=== PATIENT | female | born 1955 | race Caucasian/White ===

== ENCOUNTER 2016-09-28 18:18 | Inpatient (IN) | payer OTHER ==
[~2016-09-28] VITALS: Ht 154.9 cm; Wt 55.0 kg
[~2016-09-28 18:18] MED LIST: GLUCTAB PO; VALA500T OR
[2016-09-28 18:23] VITALS: BP 126/66; PULSE 81; RESP 16; TEMP 98.3; O2SAT 98
[2016-09-28] MEDS ORDERED: METR250 PO (18:39)
[2016-09-28] MEDS ORDERED: VALCYCLOVIR (18:39)
[2016-09-28] MEDS ORDERED: MELO1POW14 (18:39)
[2016-09-28] MEDS ORDERED: METF500T PO (18:39)
[2016-09-28 19:32] VITALS: BP 113/69; PULSE 77; RESP 16; O2SAT 98
[2016-09-28 20:06] LABS: AUTOMATED NEUTROPHIL # 13.4 TH/MM3 (1.8-7.7); BASOPHIL # 0.2 TH/MM3 (0-0.2); BASOPHIL % 1.2 % (0.0-2.0); EOSINOPHIL # 0.1 TH/MM3 (0-0.4); EOSINOPHIL % 0.4 % (0.0-4.0); HEMATOCRIT 31.3 % (35.0-46.0); LYMPH % 6.2 % (9.0-44.0); MEAN CELL VOLUME 92.3 FL (80.0-100.0); MEAN CORPUSCULAR HEMOGLOBIN 32.9 PG (27.0-34.0); MEAN CORPUSCULAR HGB CONC 35.6 % (32.0-36.0); MONO % 6.6 % (0.0-8.0); NEUT % 85.6 % (16.0-70.0); PLATELET COUNT 315 TH/MM3 (150-450); RED BLOOD COUNT 3.39 MIL/MM3 (4.00-5.30); RED CELL DISTRIBUTION WIDTH 12.6 % (11.6-17.2); WHITE BLOOD COUNT 15.7 TH/MM3 (4.0-11.0)
[2016-09-28 20:20] LABS: HEMO FLAGS DIFF FINAL
[2016-09-28 20:27] LABS: CHLORIDE 99 MEQ/L (98-107); POTASSIUM 3.3 MEQ/L (3.5-5.1); SODIUM (NA) 136 MEQ/L (136-145)
[2016-09-28 20:32] LABS: ANION GAP 10 MEQ/L (5-15); BICARBONATE 27.5 MEQ/L (21.0-32.0)
[2016-09-28 20:33] LABS: BLOOD UREA NITROGEN 14 MG/DL (7-18)
[2016-09-28 20:35] LABS: ALT (GPT) 32 U/L (10-53); AST (GOT) 21 U/L (15-37); GLOMERULAR FILTRATION RATE 58 ML/MIN (>89)
[2016-09-28 20:37] LABS: TOTAL BILIRUBIN ADULT 0.5 MG/DL (0.2-1.0)
[2016-09-28 20:38] LABS: ALKALINE PHOSPHATASE 96 U/L (45-117)
[2016-09-28 21:05] VITALS: BP 115/68; PULSE 72; RESP 17; O2SAT 98
[2016-09-28 21:30] LABS: BLOOD, URINE SMALL (NEG); GLUCOSE,URINE NEG (NEG); KETONE, URINE NEG (NEG); NITRITE,URINE NEG (NEG); PH, URINE 5.5 (5.0-8.5)
--- NOTE | 2016-09-28 21:34 | PD ---
HPI Chief Complaint: Abnormal Results Time Seen by Provider: 19:37 Travel History International Travel<30 days: No Contact w/Intl Traveler<30days: No Traveled to known affect area: No History of Present Illness HPI 61 year-old female presents to the emergency department by private transportation the care of her friend for evaluation of abnormal CT imaging results according to her physician. Patient is unclear as to what the imaging results identified. Patient states she has been sick times one week and continues to have fever on oral and education. Patient was seen earlier this week and urinalysis was performed reportedly showed no acute abnormality but patient had had left lower quadrant abdominal pain associated with nausea and nonbilious nonbloody emesis and loose stool without blood or mucus and left lower quadrant discomfort. Patient was presumptively started on oral antibiotic Flagyl and Cipro. Patient states today had fever of 100.4 and has had temperature elevation up to 103F. Patient reports history of diabetes and shingles and is otherwise reportedly in good health and status post prior hysterectomy. PFSH Past Medical History Narrative Medical Anxiety diabetes hypertension shingles hysterectomy Anxiety: Yes Cancer: No Diabetes: Yes Patient Takes Glucophage: Yes GERD: Yes Hepatitis: No Hiatal Hernia: Yes (GERD) Hypertension: No Medical other: Yes (CHR SHINGLES RECURRENCE) Shingles: Yes Thyroid Disease: No Menopausal: Yes Past Surgical History Gynecologic Surgery: Yes (C SECTION, HYSTERECTOMY) Hysterectomy: Yes Other Surgery: Yes (left rotater cuff ) Family History Family Hypercholesterolemia: Yes Social History Alcohol Use: Yes (OCCASIONALLY) Tobacco Use: No (quit 5 years ) Substance Use: No Allergies-Medications (Allergen,Severity, Reaction): Coded Allergies: Latex (Verified Allergy, Intermediate, 09/28/16) Percodan (Verified Allergy, Intermediate, 09/28/16) Codeine (Verified Adverse Reaction, Severe, NAUSEA, 09/28/16) Reported Meds & Prescriptions Reported Meds & Active Scripts Active Reported Meloxicam (Meloxicam (Bulk)) 1 Pow Pow [Valcyclovir] Unknown Dose Metformin (Metformin HCl) 500 Mg Tab Unknown Dose PO BIDPC With meals Flagyl (Metronidazole) 250 Mg Tab Unknown Dose PO QID Narrative Medication flagyl cipro Review of Systems Except as stated in HPI: all other systems reviewed are Neg General / Constitutional: Positive: Fever, Chills HENT: No: Congestion Cardiovascular: No: Chest Pain or Discomfort Respiratory: No: Shortness of Breath Gastrointestinal: Positive: Nausea, Vomiting, Diarrhea, Abdominal Pain Genitourinary: No: Dysuria, Flank Pain Musculoskeletal: No: Myalgias, Arthralgias Skin: No Rash Neurologic: Positive: Weakness Psychiatric: No: Anxiety Hematologic/Lymphatic: No: Lymph Node Enlargement Physical Exam Narrative GENERAL: Well-developed well-nourished female in no acute distress no respiratory distress SKIN: Warm and dry. Right buttock erythematous scant vesicular rash HEAD: Normocephalic. EYES: No scleral icterus. No injection or drainage. NECK: Supple, trachea midline. No JVD or lymphadenopathy. CARDIOVASCULAR: Regular rate and rhythm without murmurs, gallops, or rubs. RESPIRATORY: Breath sounds equal bilaterally. No accessory muscle use. GASTROINTESTINAL: Abdomen soft, minimal left lower quadrant tenderness without guarding or rebound or mass, nondistended. MUSCULOSKELETAL: No cyanosis, or edema. BACK: Nontender without obvious deformity. No CVA tenderness. Data Data Last Documented VS Vital Signs Date Time Temp Pulse Resp B/P Pulse Ox O2 Delivery O2 Flow Rate FiO2 09/28/16 19:32 77 16 113/69 98 Room Air 09/28/16 18:23 98.3 Orders Complete Blood Count With Diff (09/28/16 19:37) Comprehensive Metabolic Panel (09/28/16 19:37) Lipase (09/28/16 19:37) Lactic Acid (09/28/16 19:37) Urinalysis - C+S If Indicated (09/28/16 19:37) Iv Access Insert/Monitor (09/28/16 19:37) Oximetry (09/28/16 19:37) Blood Culture (09/28/16 19:54) Urine Culture (09/28/16 21:20) Sodium Chlor 0.9% 1000 Ml Inj (Ns 1000 M (09/28/16 21:45) Potassium Chloride (Kcl) (09/28/16 21:45) Piperacil-Tazo 4.5 Gm Premix (Zosyn 4.5 (09/28/16 21:45) Admit Order (Ed Use Only) (09/28/16 ) ^ Saline Lock (09/28/16 21:56) Resp Oxygen Edin C Titrat 1-4 L (7/14/17 ) Notify Dr: Other (09/28/16 21:56) Sodium Chloride 0.9% Flush (Ns Flush) (09/29/16 09:00) Sodium Chloride 0.9% Flush (Ns Flush) (09/28/16 22:00) Labs Laboratory Tests Test 09/28/16 09/28/16 19:57 21:20 White Blood Count 15.7 TH/MM3 Red Blood Count 3.39 MIL/MM3 Hemoglobin 11.2 GM/DL Hematocrit 31.3 % Mean Corpuscular Volume 92.3 FL Mean Corpuscular Hemoglobin 32.9 PG Mean Corpuscular Hemoglobin 35.6 % Concent Red Cell Distribution Width 12.6 % Platelet Count 315 TH/MM3 Mean Platelet Volume 7.6 FL Neutrophils (%) (Auto) 85.6 % Lymphocytes (%) (Auto) 6.2 % Monocytes (%) (Auto) 6.6 % Eosinophils (%) (Auto) 0.4 % Basophils (%) (Auto) 1.2 % Neutrophils # (Auto) 13.4 TH/MM3 Lymphocytes # (Auto) 1.0 TH/MM3 Monocytes # (Auto) 1.0 TH/MM3 Eosinophils # (Auto) 0.1 TH/MM3 Basophils # (Auto) 0.2 TH/MM3 CBC Comment DIFF FINAL Differential Comment Sodium Level 136 MEQ/L Potassium Level 3.3 MEQ/L Chloride Level 99 MEQ/L Carbon Dioxide Level 27.5 MEQ/L Anion Gap 10 MEQ/L Blood Urea Nitrogen 14 MG/DL Creatinine 0.98 MG/DL Estimat Glomerular Filtration 58 ML/MIN Rate Random Glucose 150 MG/DL Lactic Acid Level 1.2 mmol/L Calcium Level 8.8 MG/DL Total Bilirubin 0.5 MG/DL Aspartate Amino Transf 21 U/L (AST/SGOT) Alanine Aminotransferase 32 U/L (ALT/SGPT) Alkaline Phosphatase 96 U/L Total Protein 7.0 GM/DL Albumin 2.6 GM/DL Lipase 94 U/L Urine Color YELLOW Urine Turbidity CLEAR Urine pH 5.5 Urine Specific [place] 1.022 Urine Protein TRACE mg/dL Urine Glucose (UA) NEG mg/dL Urine Ketones NEG mg/dL Urine Occult Blood SMALL Urine Nitrite NEG Urine Bilirubin NEG Urine Leukocyte Esterase SMALL Urine RBC 4-9 /hpf Urine WBC 6-8 /hpf Urine WBC Clumps FEW Urine Squamous Epithelial 0-5 /hpf Cells Urine Bacteria NONE /hpf Microscopic Urinalysis Comment CULTURE INDICATED MDM Medical Decision Making Medical Screen Exam Complete: Yes Emergency Medical Condition: Yes Medical Record Reviewed: Yes Interpretation(s) CBC & BMP Diagram 09/28/16 19:57 Vital Signs Date Time Temp Pulse Resp B/P Pulse Ox O2 Delivery O2 Flow Rate FiO2 09/28/16 19:32 77 16 113/69 98 Room Air 09/28/16 18:23 98.3 81 16 126/66 98 UA: Positive leukocyte Estrace positive white blood cells clumped white blood cells culture indicated Lactic acid: 1.2, not elevated Differential Diagnosis Abnormal CT, abdominal pain, diverticulitis, pyelonephritis, colitis, abscess, Mass Narrative Course IV access obtained specimens collected and sent for resulting call placed to [facility]ologist for review of patient's outpatient [place] [facility] CT results and per reading radiologist patient has evidence of bilateral renal 180 concerning for bilateral pyelonephritis otherwise unremarkable study reportedly ; call also placed to Dr. Su covering for patient's primary doctor Lai who also relays that he was informed by [place] [facility] radiologist that CT study was concerning for bilateral pyelonephritis. Patient informed of CT reading and urine specimen ordered for collection At 9:30 PM patient remains clinically stable however continues to have leukocytosis with left shift with recent history of fever chills while on oral antibiotic concerning for failed outpatient therapy; here in the emergency department presently, patient has a normal range lactic acid and will range vital signs without fever. Plan admit for pyelonephritis failed outpatient oral antibiotic therapy with recurrent shingles outbreak. Sepsis Criteria SIRS Criteria (2 or more): Temp > 100.9 or < 96.8 (at home 103F/100.4F), WBC > 48938, < 4000 or > 10% bands Sepsis Criteria (SIRS+source): Infect source susp/known Physician Communication Physician Communication call placed to [facility] --discussed with Dr Hutson Diagnosis Primary Impression: Pyelonephritis Additional Impressions: Diabetes Hypokalemia Shingles rash Qualified Code: B02.9 - Herpes zoster without complication Admitting Information Admitting Physician Requests: Admit Maria Fernanda Bhatia MD Sep 28, 2016 21:34
[2016-09-28 21:35] LABS: URINE COLOR YELLOW (YELLW/STRAW)
[2016-09-28 21:36] LABS: SQUAMOUS EPITHELIAL CELL URINE 0-5 /hpf (0-5)
[2016-09-28 21:37] LABS: COMMENT (UR) CULTURE INDICATED; CULTURE IF INDICATED CULTURE INDICATED
[2016-09-28] MEDS ORDERED: POTASSIUM CHLORIDE 20 MEQ CONTROLLED RELEASE TAB PO ONE (21:45)
[2016-09-28] MEDS ORDERED: SODIUM CHLOR 0.9% 1000 ML INJ 1,000 ML IV ONE (21:45)
[2016-09-28] MEDS ORDERED: PIPERACIL-TAZO 4.5 GM PREMIX 100 ML IV ONE (21:45)
[2016-09-28] MEDS ORDERED: SODIUM CHLORIDE 0.9% FLUSH 10 ML FLUSH IVF PRN (22:00)
[2016-09-28] MEDS ORDERED: ACETAMINOPHEN 325 MG TAB PO PRN (22:15)
[2016-09-28] MEDS ORDERED: GLUCAGON 1 MG/ML VIAL OTHER PRN (22:15)
[2016-09-28] MEDS ORDERED: BISACODYL 10 MG SUPP RECTAL PRN (22:15)
[2016-09-28] MEDS ORDERED: MAGNESIUM HYDROXIDE SUSP 30 ML CUP PO PRN (22:15)
[2016-09-28] MEDS ORDERED: DEXTROSE 50% IN WATER 50 ML VIAL(D50) IV PRN (22:15)
[2016-09-28] MEDS ORDERED: SODIUM CHLORIDE 0.9% FLUSH 10 ML FLUSH IV FLUSH PRN (22:15)
[2016-09-28] MEDS ORDERED: LACTULOSE SYRUP 20 GM/30 ML CUP PO PRN (22:15)
[2016-09-28] MEDS ORDERED: SENNOSIDES 8.6 MG TAB PO PRN (22:15)
[2016-09-28] MEDS ORDERED: ONDANSETRON HCL 4 MG/2 ML VIAL IVP PRN (22:15)
[2016-09-28 22:17] VITALS: O2SAT 97
[2016-09-28] MEDS ORDERED: MORPHINE SULFATE 8 MG/ML INJ IV PUSH PRN ×2 (22:30)
[2016-09-28 23:03] VITALS: BP 113/42
[2016-09-29] VITALS (7 sets, daily range): BP systolic 93–104; BP diastolic 54–62; PULSE 66–72; RESP 16–20; TEMP 97.9–101.5; O2SAT 96–98
[2016-09-29] MEDS: SODIUM CHLOR 0.9% 1000 ML INJ 1,000 ML IV SCH ×3 (00:31→18:00)
[2016-09-29] MEDS: PIPERACIL-TAZO 3.375 GM PREMIX 50 ML IV SCH ×4 (04:54→21:16)
[2016-09-29] MEDS: INSULIN ASPART SUPPLEMENTAL SCALE SQ SCH ×4 (06:10→21:00)
[2016-09-29] MEDS: SODIUM CHLORIDE 0.9% FLUSH 10 ML FLUSH IV FLUSH SCH ×2 (09:00→21:16)
[2016-09-29] MEDS ORDERED: DOCUSATE SODIUM 50 MG/SENNA 8.6 MG TAB PO SCH (09:00)
[2016-09-29] MEDS ORDERED: SODIUM CHLORIDE 0.9% FLUSH 10 ML FLUSH IV FLUSH SCH (09:00)
[2016-09-29 09:08] LABS: AUTOMATED NEUTROPHIL # 10.5 TH/MM3 (1.8-7.7); BASOPHIL % 0.3 % (0.0-2.0); EOSINOPHIL % 0.3 % (0.0-4.0); HEMATOCRIT 30.8 % (35.0-46.0); LYMPH % 9.2 % (9.0-44.0); LYMPHOCYTE # 1.2 TH/MM3 (1.0-4.8); MEAN CELL VOLUME 96.2 FL (80.0-100.0); MEAN CORPUSCULAR HEMOGLOBIN 32.2 PG (27.0-34.0); MEAN CORPUSCULAR HGB CONC 33.5 % (32.0-36.0); MONO % 6.8 % (0.0-8.0); NEUT % 83.4 % (16.0-70.0); PLATELET COUNT 351 TH/MM3 (150-450); RED CELL DISTRIBUTION WIDTH 13.4 % (11.6-17.2); WHITE BLOOD COUNT 12.6 TH/MM3 (4.0-11.0)
[2016-09-29 09:33] LABS: HEMO FLAGS DIFF FINAL
[2016-09-29 09:41] LABS: ALKALINE PHOSPHATASE 87 U/L (45-117); ALT (GPT) 24 U/L (10-53); ANION GAP 8 MEQ/L (5-15); AST (GOT) 16 U/L (15-37); BICARBONATE 27.3 MEQ/L (21.0-32.0); BLOOD UREA NITROGEN 11 MG/DL (7-18); CHLORIDE 107 MEQ/L (98-107); GLOMERULAR FILTRATION RATE 65 ML/MIN (>89); POTASSIUM 3.9 MEQ/L (3.5-5.1); SODIUM (NA) 142 MEQ/L (136-145); TOTAL BILIRUBIN ADULT 0.5 MG/DL (0.2-1.0)
--- NOTE | 2016-09-29 14:46 | HHI.HP ---
[facility] Alexis Silva MD Admission Diagnosis pyelonephritis; dm; recurrent shingles Diagnoses: Chief Complaint: uti Travel History International Travel<30 Days: No Contact w/Intl Traveler <30 Da: No Traveled to Known Affected Are: No History of Present Illness patient is a pleasant 61 year old female with a week of malaise, dysuria, frequency, poor appetite, chills and fever of 103 at home. She saw her PCP and was given Cipro and flagyl which she took for 3 days without improvement. She had lower abdominal pain not relieved with motrin and reports a 6 pound wt loss in one week. She saw her doctor again and an outpatient CT showed BIlat Pyelonephritis. She came to ER. Zosyn was started and overnight the patient has dramatically improved. Review of Systems Constitutional: COMPLAINS OF: Fever, Chills, Dizziness, Change in appetite, DENIES: Diaphoretic episodes, Fatigue, Weight gain, Weight loss, Night Sweats Endocrine: DENIES: Abnorml menstrual pattern, Heat/cold intolerance, Polydipsia , Polyuria, Polyphagia Eyes: DENIES: Blurred vision, Diplopia, Eye inflammation, Eye pain, Vision loss , Photosensitivity, Double Vision Ears, nose, mouth, throat: DENIES: Tinnitus, Hearing loss, Vertigo, Nasal discharge, Oral lesions, Throat pain, Hoarseness, Ear Pain, Running Nose, Epistaxis, Sinus Pain, Toothache, Odynophagia Respiratory: DENIES: Apneas, Cough, Snoring, Wheezing, Hemoptysis, Sputum production, Shortness of breath Cardiovascular: DENIES: Chest pain, Palpitations, Syncope, Dyspnea on Exertion , PND, Lower Extremity Edema, Orthopnea, Claudication Gastrointestinal: DENIES: Abdominal pain, Black stools, Bloody stools, Constipation, Diarrhea, Nausea, Vomiting, Difficulty Swallowing, Anorexia Genitourinary: COMPLAINS OF: Urinary frequency, Urgency, DENIES: Abnormal vaginal bleeding, Dysmenorrhea, Dyspareunia, Sexual dysfunction, Urinary incontinence, Hematuria, Dysuria, Nocturia, Vaginal discharge Musculoskeletal: DENIES: Joint pain, Muscle aches, Stiffness, Joint Swelling, Back pain, Neck pain Integumentary: DENIES: Abnormal pigmentation, Pruritus, Rash, Nail changes, Breast masses, Breast skin changes, Nipple discharge Hematologic/lymphatic: DENIES: Bruising, Lymphadenopathy Neurologic: DENIES: Abnormal gait, Headache, Localized weakness, Paresthesias, Seizures, Speech Problems, Tremor, Poor Balance Psychiatric: DENIES: Anxiety, Confusion, Mood changes, Depression, Hallucinations, Agitation, Suicidal Ideation, Homicidal Ideation, Delusions Past Family Social History Past Medical History DM2 Past Surgical History C/S MARY KATE rotator cuff Reported Medications reviewed in the EMR (Cipro/Flagyl for uti) Allergies: Coded Allergies: Latex (Verified Allergy, Intermediate, 09/28/16) Percodan (Verified Allergy, Intermediate, 09/28/16) Codeine (Verified Adverse Reaction, Severe, NAUSEA, 09/28/16) Active Ordered Medications reviewed in the EMR Family History DM in grand mother both parents from lung ca Social History quit smoking 6 years ago 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 SKIN: No rashes, ecchymoses or lesions. Cool and dry. HEAD: Atraumatic. Normocephalic. No temporal or scalp tenderness. EYES: Pupils equal round and reactive. Extraocular motions intact. No scleral icterus. No injection or drainage. ENT: Nose without bleeding, purulent drainage or septal hematoma. Throat without erythema, tonsillar hypertrophy or exudate. Uvula midline. Airway patent. NECK: Trachea midline. No JVD or lymphadenopathy. Supple, nontender, no meningeal signs. CARDIOVASCULAR: Regular rate and rhythm without murmurs, gallops, or rubs. RESPIRATORY: Clear to auscultation. Breath sounds equal bilaterally. No wheezes , rales, or rhonchi. GASTROINTESTINAL: Abdomen soft, non-tender, nondistended. No hepato-splenomegaly , or palpable masses. No guarding. MUSCULOSKELETAL: Extremities without clubbing, cyanosis, or edema. No joint tenderness, effusion, or edema noted. No calf tenderness. Negative Homans sign bilaterally. NEUROLOGICAL: Awake and alert. Cranial nerves II through XII intact. Motor and sensory grossly within normal limits. Five out of 5 muscle strength in all muscle groups. Normal speech. Laboratory Laboratory Tests Test 09/28/16 09/28/16 09/29/16 19:57 21:20 07:46 White Blood Count 15.7 12.6 Red Blood Count 3.39 3.20 Hemoglobin 11.2 10.3 Hematocrit 31.3 30.8 Mean Corpuscular Volume 92.3 96.2 Mean Corpuscular Hemoglobin 32.9 32.2 Mean Corpuscular Hemoglobin 35.6 33.5 Concent Red Cell Distribution Width 12.6 13.4 Platelet Count 315 351 Mean Platelet Volume 7.6 7.9 Neutrophils (%) (Auto) 85.6 83.4 Lymphocytes (%) (Auto) 6.2 9.2 Monocytes (%) (Auto) 6.6 6.8 Eosinophils (%) (Auto) 0.4 0.3 Basophils (%) (Auto) 1.2 0.3 Neutrophils # (Auto) 13.4 10.5 Lymphocytes # (Auto) 1.0 1.2 Monocytes # (Auto) 1.0 0.9 Eosinophils # (Auto) 0.1 0.0 Basophils # (Auto) 0.2 0.0 CBC Comment DIFF FINAL DIFF FINAL Differential Comment Sodium Level 136 142 Potassium Level 3.3 3.9 Chloride Level 99 107 Carbon Dioxide Level 27.5 27.3 Anion Gap 10 8 Blood Urea Nitrogen 14 11 Creatinine 0.98 0.89 Estimat Glomerular Filtration 58 65 Rate Random Glucose 150 113 Lactic Acid Level 1.2 Calcium Level 8.8 7.9 Total Bilirubin 0.5 0.5 Aspartate Amino Transf 21 16 (AST/SGOT) Alanine Aminotransferase 32 24 (ALT/SGPT) Alkaline Phosphatase 96 87 Total Protein 7.0 6.0 Albumin 2.6 2.2 Lipase 94 Urine Color YELLOW Urine Turbidity CLEAR Urine pH 5.5 Urine Specific [place] 1.022 Urine Protein TRACE Urine Glucose (UA) NEG Urine Ketones NEG Urine Occult Blood SMALL Urine Nitrite NEG Urine Bilirubin NEG Urine Leukocyte Esterase SMALL Urine RBC 4-9 Urine WBC 6-8 Urine WBC Clumps FEW Urine Squamous Epithelial 0-5 Cells Urine Bacteria NONE Microscopic Urinalysis Comment CULTURE INDICATED Date/Time Procedure Status Source Growth 09/28/16 21:20 Urine Culture Received Urine Clean Catch Pending 09/28/16 20:15 Aerobic Blood Culture - Preliminary Resulted Blood Peripheral NO GROWTH IN 1 DAY 09/28/16 20:15 Anaerobic Blood Culture - Preliminary Resulted Blood Peripheral NO GROWTH IN 1 DAY Result Diagram: 09/29/16 0746 09/29/[address] per ER showed pyelonephritis Assessment and Plan Problem List: (1) Pyelonephritis ICD Code: N12 Status: Acute Plan: improved dramatically on current IV abx. Cultures pending to determine oral rx repeat cbc in am (2) Diabetes ICD Code: E11.9 Status: Acute Plan: stable on SSI and accuchecks Assessment and Plan likely dc in am pending cultures on PO abx Discussed Condition With patient, RN Physician Certification 2 Midnight Certification Type: Admission for Inpatient Services Order for Inpatient Services The services are ordered in accordance with Medicare regulations or non- Medicare payer requirements, as applicable. In the case of services not specified as inpatient-only, they are appropriately provided as inpatient services in accordance with the 2-midnight benchmark. Estimated LOS (days): 2 2 days is the estimated time the patient will need to remain in the hospital, assuming treatment plan goals are met and no additional complications. Post-Hospital Plan: Home Problem Qualifiers (1) Diabetes: Grisel Gonzáles MD Sep 29, 2016 14:46
--- NOTE | 2016-09-29 18:52 | HHI.DCPOC ---
Discharge Care Plan Diagnosis: (1) Pyelonephritis Goals to Promote Your Health * To prevent worsening of your condition and complications * To maintain your health at the optimal level Directions to Meet Your Goals Take your medications as prescribed Follow your dietary instruction Follow activity as directed Keep your appointments as scheduled Take your immunizations and boosters as scheduled If your symptoms worsen call your PCP, if no PCP go to Urgent Care Center or Emergency Room Smoking is Dangerous to Your Health. Avoid second hand smoke Call the 24-hour hour crisis hotline for domestic abuse at Grisel Gonzáles MD Sep 29, 2016 18:52
[2016-09-30] VITALS: BP 128/68; PULSE 69; RESP 16; TEMP 100.6; O2SAT 97
[2016-09-30] MEDS: SODIUM CHLOR 0.9% 1000 ML INJ 1,000 ML IV SCH ×2 (03:26→14:01)
[2016-09-30] MEDS: PIPERACIL-TAZO 3.375 GM PREMIX 50 ML IV SCH ×2 (03:26→10:55)
[2016-09-30] MEDS: INSULIN ASPART SUPPLEMENTAL SCALE SQ SCH ×2 (05:17→11:00)
[2016-09-30 07:50] VITALS: O2SAT 96
[2016-09-30 08:00] VITALS: BP 110/63; PULSE 84; RESP 18; TEMP 98.1; O2SAT 95
[2016-09-30 08:53] LABS: BASOPHIL # 0.2 TH/MM3 (0-0.2); BASOPHIL % 1.3 % (0.0-2.0); EOSINOPHIL # 0.1 TH/MM3 (0-0.4); EOSINOPHIL % 0.8 % (0.0-4.0); HEMATOCRIT 31.1 % (35.0-46.0); LYMPH % 11.4 % (9.0-44.0); LYMPHOCYTE # 1.4 TH/MM3 (1.0-4.8); MEAN CELL VOLUME 93.6 FL (80.0-100.0); MEAN CORPUSCULAR HEMOGLOBIN 31.4 PG (27.0-34.0); MEAN CORPUSCULAR HGB CONC 33.6 % (32.0-36.0); MONO % 7.8 % (0.0-8.0); NEUT % 78.7 % (16.0-70.0); PLATELET COUNT 365 TH/MM3 (150-450); RED BLOOD COUNT 3.33 MIL/MM3 (4.00-5.30); RED CELL DISTRIBUTION WIDTH 13.1 % (11.6-17.2); WHITE BLOOD COUNT 12.7 TH/MM3 (4.0-11.0)
[2016-09-30 08:56] LABS: HEMO FLAGS AUTO DIFF
[2016-09-30 09:37] LABS: SCAN/DIFF AUTO DIFF CONFIRMED
--- NOTE | 2016-09-30 09:42 | HHI.PR ---
Subjective Remarks Patient seen and evaluated in follow-up for fever, UTI. Urine cultures are negative (patient had been on Flagyl and Cipro for several days), blood cultures are negative to date. Fever 101.5 overnight however patient feels quite well. Objective Vitals Vital Signs Date Time Temp Pulse Resp B/P Pulse Ox O2 Delivery O2 Flow Rate FiO2 09/30/16 08:00 98.1 84 18 110/63 95 09/30/16 07:50 96 21 09/30/16 04:00 09/30/16 00:00 100.6 69 16 128/68 97 09/29/16 21:27 99.8 70 16 101/61 96 09/29/16 19:27 96 21 09/29/16 16:00 101.5 72 20 104/62 97 09/29/16 12:00 98.3 66 20 98/60 98 I/O 09/29/16 09/29/16 09/29/16 09/30/16 09/30/16 09/30/16 06:59 14:59 22:59 06:59 14:59 22:59 Intake Total 600 ml 840 ml 1699 ml Balance 600 ml 840 ml 1699 ml Intake Oral 840 ml IV Total 600 ml 1699 ml # Voids 1 7 4 # Bowel Movements 7 0 Result Diagram: 09/30/16 0757 09/29/16 0746 Objective Remarks GENERAL: This is a well-nourished, well-developed patient, in no apparent distress. CARDIOVASCULAR: Regular rate and rhythm without murmurs, gallops, or rubs. RESPIRATORY: Clear to auscultation. Breath sounds equal bilaterally. No wheezes , rales, or rhonchi. GASTROINTESTINAL: Abdomen soft, non-tender, nondistended. Normal active bowel sounds MUSCULOSKELETAL: Extremities without clubbing, cyanosis, or edema. NEURO: Alert & Oriented x4 to person, place, time, situation. Moves all ext x4 A/P Problem List: (1) Pyelonephritis ICD Code: N12 Status: Acute Plan: (Apparent on outpatient CT, per pcp) improved dramatically on current IV Zosyn Leukocytosis stable, blood cultures and urine cultures negative to date We'll continue to follow for fever and if defervesced likely discharge home on oral antibiotics (2) Diabetes ICD Code: E11.9 Status: Acute Plan: stable on SSI and accuchecks Assessment and Plan Continue to watch, if no further fevers likely discharge home on Augmentin to complete 7 total days for complicated UTI Problem Qualifiers (1) Diabetes: Grisel Gonzáles MD Sep 30, 2016 09:42
[2016-09-30] MEDS: SODIUM CHLORIDE 0.9% FLUSH 10 ML FLUSH IV FLUSH SCH (10:55)
[2016-09-30 12:00] VITALS: BP 112/61; PULSE 60; RESP 18; TEMP 98.6; O2SAT 98
[2016-09-30] MEDS ORDERED: AMOX500T2 PO (15:42)
== END 2016-09-30 16:54 | disposition home or self-care (01) | DRG 690 ==
LOC: PHED 18:18 → PHEDA 22:00 → PH3A 22:59
PROVIDERS: ADMIT Hospitalist; ATTEND Hospitalist
DX: N10 Acute pyelonephritis (principal); B02.9 Zoster without complications; I10 Essential (primary) hypertension; E87.6 Hypokalemia; E11.9 Type 2 diabetes mellitus without complications; Z87.891 Personal history of nicotine dependence; K21.9 Gastro-esophageal reflux disease without esophagitis; F41.9 Anxiety disorder, unspecified; K44.9 Diaphragmatic hernia without obstruction or gangrene; Z90.710 Acquired absence of both cervix and uterus; Z79.84 Long term (current) use of oral hypoglycemic drugs
CPT/HCPCS: 80053; 81001; 82948; 83605; 83690; 85025; 87040; 87086; 96374; J2543; J7030